=== PATIENT | male | born 2005 | race Caucasian/White ===

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

== ENCOUNTER 2024-02-11 11:09 | Emergency (ER) | payer OTHER ==
[~2024-02-11] VITALS: Ht 177.8 cm; Wt 113.6 kg
[~2024-02-11 11:09] MED LIST changes: +CIPRO500 MG PO
[2024-02-11 11:45] LABS: BILIRUBIN, URINE NEGATIVE (negative); BLOOD/HGB, URINE TRACE-I (Negative); KETONE, URINE NEGATIVE (Negative); LEUK ESTERASE, URINE NEGATIVE (negative); NITRITE, URINE NEGATIVE (negative)
[2024-02-11] MEDS ORDERED: IBUPROFEN 600 MG TAB PO ONE (11:45)
[2024-02-11 11:56] LABS: BACTERIA, URINE NONE SEEN /hpf (negative); CASTS, URINE NONE SEEN \\lpf; COLLECTION TYPE, URINE CLEAN CATCH; CRYSTALS, URINE NONE SEEN (0-1+); EPITHELIAL CELLS, URINE 0 /lpf (0-1+); RED BLOOD CELLS, URINE 0-1 /hpf (0-5); REFLEX CULTURE, URINE No (No); WHITE BLOOD CELLS, URINE 0-1 /HPF (0-5)
[2024-02-11] MEDS ORDERED: DOXYCYCLINE HY100 MG PO (12:51)
[2024-02-11 13:00] VITALS: BP 117/84
== END 2024-02-11 13:07 | disposition home or self-care (01) ==
LOC: ED 11:09
PROVIDERS: Emergency Medicine
DX: N50.811 Right testicular pain (principal); N50.812 Left testicular pain; Z88.0 Allergy status to penicillin
CPT/HCPCS: 81001; 99284; A9270